=== PATIENT | male | born 1980 ===

== ENCOUNTER 2025-08-23 18:15 | Emergency (ER) | payer MEDICARE, MEDICAID ==
[2025-08-23 18:55] LABS: BASOPHILS ABSOLUTE AUTO 0.03 K/uL (0.00-0.20); BASOPHILS PERCENT AUTO 0.3 % (0.0-1.0); EOSINOPHILS ABSOLUTE AUTO 0.22 K/uL (0.00-0.45); EOSINOPHILS PERCENT AUTO 2.3 % (0.0-6.0); IMMATURE GRAN ABSOLUTE AUTO 0.04 K/uL (0.00-0.05); IMMATURE GRAN PERCENT AUTO 0.4 % (0.0-0.4); LYMPHOCYTES ABSOLUTE AUTO 1.06 K/uL (1.00-4.80); LYMPHOCYTES PERCENT AUTO 11.1 % (24.0-44.0); MEAN PLATELET VOLUME 9.2 fL (9.4-12.4); MONOCYTES ABSOLUTE AUTO 0.49 K/uL (0.00-0.80); MONOCYTES PERCENT AUTO 5.1 % (0.0-8.0); NEUTROPHILS ABSOLUTE AUTO 7.75 K/uL (1.80-7.70); NEUTROPHILS PERCENT AUTO 80.8 % (41.0-71.0); NRBC ABSOLUTE 0.00 K/uL (0.00-0.02); NRBC PERCENT 0.0 /100WBC (0.0-0.2); PLATELET COUNT,PLT 265 K/uL (150-400); RED BLOOD CELL COUNT 4.48 M/uL (4.52-5.90); WHITE BLOOD CELL COUNT,WBC 9.59 K/uL (3.9-11.3)
[2025-08-23 19:29] LABS: A/G RATIO 1.2 (0.9-1.6); ALANINE AMINOTRANSFERASE,ALT 60 IU/L (14-63); ASPARTATE AMNIOTRANSFERASE,AST 35 IU/L (15-37); BILIRUBIN TOTAL 0.6 mg/dL (0.2-1.0); BLOOD UREA NITROGEN,BUN 11 mg/dL (7.0-18.0); CARBON DIOXIDE,CO2 25.4 mmol/L (21.0-32.0); CHLORIDE,CL 92 mmol/L (98-107); CREATININE 1.0 mg/dL (0.8-1.3); GLUCOSE RANDOM 213 mg/dL (74-106); POTASSIUM,K 3.3 mmol/L (3.5-5.1); PROTEIN TOTAL,TP 7.4 g/dL (6.4-8.2); SODIUM,NA 132 mmol/L (136-148)
[2025-08-23 19:31] LABS: ESTIMATED GFR 96 mL/min (>60)
[2025-08-23] MEDS: Potassium Chloride 20 MEQ Tab.ER PO ONE (20:36)
[2025-08-23] MEDS: Iopamidol 755 Mg/ML 100 ML Bottle IVPUSH STA (21:13)
== END 2025-08-23 21:53 | disposition home or self-care (01) ==
LOC: MW.ED 18:15
DX: I10 Essential (primary) hypertension (principal); R51.9 Headache, unspecified; Z79.84 Long term (current) use of oral hypoglycemic drugs; Z79.899 Other long term (current) drug therapy
CPT/HCPCS: 36415; 70450; 70450-26; 71045; 71045-26; 71275; 71275-26; 80053; 84484; 85025; 93005; 93010; 96374; 99284; 99284-25; A9270-GY; J2765; J7030; Q9967